=== PATIENT | female | born 1975 | race American Indian/Alaskan Native ===

== ENCOUNTER 2017-05-08 15:22 | Emergency (ER) | payer SELFPAY ==
[2017-05-08] MEDS ORDERED: CATAPRES PO ONE (15:54)
[2017-05-08 16:31] LABS: Anion Gap 20 mmol/L; Blood Urea Nitrogen 11 mg/dL (7-17); Calcium 9.3 mg/dL (8.4-10.2); Carbon Dioxide 24 mmol/L (22-30); Chloride 96.7 mmol/L (98-107); Glucose 102 mg/dL (65-100); Potassium 3.4 mmol/L (3.6-5.0); Sodium 137 mmol/L (137-145)
[2017-05-08 17:05] LABS: Basophils % (Auto) 0.7 % (0.0-1.8); Eosinophils % (Auto) 1.4 % (0.0-4.3); Hematocrit 36.7 % (30.3-42.9); Hemoglobin 11.8 gm/dl (10.1-14.3); Mean Corpuscular HGB Conc 32 % (30-34); Mean Corpuscular Hemoglobin 28 pg (28-32); Mean Corpuscular Volume 88 fl (79-97); Platelet Count 326 K/mm3 (140-440); Red Blood Count 4.19 M/mm3 (3.65-5.03); Red Cell Distribution Width 14.9 % (13.2-15.2)
--- NOTE | 2017-05-08 17:29 | Emergency Department Report ---
ED General Adult HPI - General Chief complaint: High BP Stated complaint: SEVERE NOSE BLEEDS /LASTING 30 MIN+/2DAYS Time Seen by Provider: 05/08/17 17:28 Source: patient Mode of arrival: Ambulatory Limitations: No Limitations - History of Present Illness Initial comments: Patient presents for 2 brief episodes of epistaxis over the past 2 days. There is no active bleeding now. She has been previously treated for hypertension. She is noncompliant with medical follow-up and medication. She doesn't have any other symptoms. She presented her blood pressure might be out of control. -: Gradual Associated Symptoms: denies other symptoms Treatments Prior to Arrival: none - Related Data Previous Rx's Medication Instructions Recorded Last Taken Type Losartan/Hydrochlorothiazide 1 each PO QDAY #30 tablet 05/08/17 Unknown Rx [Losartan-Hctz 100-25 mg Tab] Allergies Allergy/AdvReac Type Severity Reaction Status Date / Time No Known Allergies Allergy Verified 05/08/17 15:34 ED Review of Systems ROS: Stated complaint: SEVERE NOSE BLEEDS /LASTING 30 MIN+/2DAYS Other details as noted in HPI Constitutional: denies: chills, fever Eyes: denies: eye pain, eye discharge, vision change ENT: epistaxis. denies: ear pain, throat pain Respiratory: denies: cough, shortness of breath, wheezing Cardiovascular: denies: chest pain, palpitations Endocrine: no symptoms reported Gastrointestinal: denies: abdominal pain, nausea, diarrhea Genitourinary: denies: urgency, dysuria, discharge Musculoskeletal: denies: back pain, joint swelling, arthralgia Skin: denies: rash, lesions Neurological: denies: headache, weakness, paresthesias Psychiatric: denies: anxiety, depression Hematological/Lymphatic: denies: easy bleeding, easy bruising ED Past Medical Hx - Past Medical History Hx Hypertension: Yes - Surgical History Past Surgical History?: Yes Additional Surgical History: fibroids - Social History Smoking Status: Never Smoker Substance Use Type: Alcohol - Medications Home Medications: Home Medications Medication Instructions Recorded Confirmed Last Taken Type Losartan/Hydrochlorothiazide 1 each PO QDAY #30 tablet 05/08/17 Unknown Rx [Losartan-Hctz 100-25 mg Tab] ED Physical Exam - General Limitations: No Limitations General appearance: alert, in no apparent distress - Head Head exam: Present: atraumatic, normocephalic - Eye Eye exam: Present: normal appearance - ENT ENT exam: Present: mucous membranes moist - Neck Neck exam: Present: normal inspection - Respiratory Respiratory exam: Present: normal lung sounds bilaterally. Absent: respiratory distress - Cardiovascular Cardiovascular Exam: Present: regular rate, normal rhythm. Absent: systolic murmur, diastolic murmur, rubs, gallop - GI/Abdominal GI/Abdominal exam: Present: soft, normal bowel sounds. Absent: distended, tenderness, guarding, rebound, rigid - Extremities Exam Extremities exam: Present: normal inspection - Back Exam Back exam: Present: normal inspection - Neurological Exam Neurological exam: Present: alert, oriented X3, CN II-XII intact. Absent: motor sensory deficit - Psychiatric Psychiatric exam: Present: normal affect, normal mood - Skin Skin exam: Present: warm, dry, intact, normal color. Absent: rash ED Course Vital Signs 05/08/17 05/08/17 15:34 15:58 Temperature 98.9 F Pulse Rate 94 H 94 H Respiratory 16 Rate Blood Pressure 202/124 202/124 O2 Sat by Pulse 100 Oximetry - Reevaluation(s) Reevaluation #1: The patient is now asymptomatic. Her blood pressure is about 170/106. This is a reasonable target for acute reduction. She will be discharged and referred for outpatient management. 05/08/17 17:36 ED Medical Decision Making - Lab Data Result diagrams: 05/08/17 15:51 05/08/17 15:51 Laboratory Results - last 24 hr 05/08/17 05/08/17 15:51 15:51 WBC 9.0 RBC 4.19 Hgb 11.8 Hct 36.7 MCV 88 MCH 28 MCHC 32 RDW 14.9 Plt Count 326 Lymph % (Auto) 24.0 Harlan % (Auto) 6.0 Eos % (Auto) 1.4 Baso % (Auto) 0.7 Lymph # 2.2 Harlan # 0.5 Eos # 0.1 Baso # 0.1 Seg Neutrophils % 67.9 Seg Neutrophils # 6.1 Sodium 137 Potassium 3.4 L Chloride 96.7 L Carbon Dioxide 24 Anion Gap 20 BUN 11 Creatinine 0.5 L Estimated GFR > 60 BUN/Creatinine Ratio 22.00 Glucose 102 H Calcium 9.3 Troponin T < 0.010 - EKG Data -: EKG Interpreted by Co EKG shows normal: sinus rhythm, axis, intervals, ST-T waves - EKG Data Interpretation: LVH (voltage criteria for LVH left atrial abnormality) Critical care attestation.: If time is entered above; I have spent that time in minutes in the direct care of this critically ill patient, excluding procedure time. ED Disposition Clinical Impression: Epistaxis, Uncontrolled hypertension Disposition: TO HOME OR SELFCARE Is pt being admited?: No Does the pt Need Aspirin: No Condition: Stable Instructions: Hypertension (ED) Additional Instructions: Follow-up with primary care physician. See referrals. Rx as directed. Return any acute change or problem. He should monitor your blood pressure on your own with a home blood pressure device or checked it at a supermarket or pharmacy. Return any extreme elevation, acute change or additional symptoms. Otherwise it is very important that you follow-up with a primary care physician. Begin medication Rx today. Prescriptions: Losartan/Hydrochlorothiazide [Losartan-Hctz 100-25 mg Tab] 1 each PO QDAY #30 tablet Referrals: [facility] [Provider Group] - 3-5 Days ALBERT COLLINS MD [Staff Physician] - 2-3 Days Time of Disposition: 17:41
[2017-05-08 17:43] VITALS: BP 176/106
[2017-05-08] MEDS ORDERED: K-DUR PO ONE ×2 (18:19)
== END 2017-05-08 18:41 | disposition home or self-care (01) ==
LOC: ED 15:22
DX: R04.0 Epistaxis (principal); I10 Essential (primary) hypertension
CPT/HCPCS: 36415; 80048; 84484; 85025; 93005; 93010